=== PATIENT | female | born 1995 | race Two or more races ===

== ENCOUNTER 2021-01-18 21:57 | Emergency (ER) | payer SELFPAY ==
[~2021-01-18] VITALS: Ht 152.4 cm; Wt 61.0 kg
[2021-01-18] MEDS ORDERED: fentaNYL PF VIAL 100 MCG/2 ML VIAL IVP ONE (22:30)
[2021-01-18] MEDS ORDERED: ONDANSETRON PF 4 MG/2 ML VIAL. IVP ONE (22:30)
[2021-01-18] MEDS ORDERED: IV NORMAL SALINE 1000ML BAG 1,000 ML IV SCH (22:30)
--- NOTE | 2021-01-18 22:33 | PHYS DOC ---
General Adult EDM: Chief Complaint: ABDOMINAL PAIN HPI: HPI: Patient is a 25 year old female who presents with states she sat down tonight to urinate and suddenly had a severe sharp shooting pain that went from the right lower quadrant all the way to her back. She states that she also had hematuria. She states she did vomit once. She is rating her pain a 10 out of 10 sharp and shooting. Nothing makes it worse or better. She denies any type of history or surgical history. Denies fever, burning with urination, diarrhea, chest pain, shortness of air, headache, dizziness, numbness or tingling. (CLOTILDE BARRETT APRN) Review of Systems: Review of Systems: Constitutional: Denies fever or chills. [] Eyes: Denies change in visual acuity. [] HENT: Denies nasal congestion or sore throat. [] Respiratory: Denies cough or shortness of breath. [] Cardiovascular: Denies chest pain or edema. [] GI: + abdominal pain, +nausea, +vomiting, denies bloody stools or diarrhea. [] : Denies dysuria. + Hematuria Musculoskeletal: + Right flank back pain or denies joint pain. [] Integument: Denies rash. [] Neurologic: Denies headache, focal weakness or sensory changes. [] Endocrine: Denies polyuria or polydipsia. [] Lymphatic: Denies swollen glands. [] Psychiatric: Denies depression or anxiety. [] (CLOTILDE BARRETT APRN) Heart Score: C/O Chest Pain: No (CLOTILDE BARRETT APRN) Current Medications: Current Medications Medications (Trade) Dose Ordered Sig/Felecia Start Time Stop Time Status Last Admin Dose Admin Fentanyl Citrate (Fentanyl 2ml Vial) 50 mcg 1X ONCE 01/18/21 22:30 01/18/21 22:31 UNV Ondansetron HCl (Zofran) 4 mg 1X ONCE 01/18/21 22:30 01/18/21 22:31 UNV Sodium Chloride 1,000 ml @ 1,000 mls/hr Q1H 01/18/21 22:30 01/18/21 23:29 UNV (CLOTILDE BARRETT APRN) Physical Exam: PE: Constitutional: Well developed, well nourished, no acute distress, non-toxic appearance. [] HENT: Normocephalic, atraumatic, bilateral external ears normal, oropharynx moist, no oral exudates, nose normal. [] Eyes: PERRLA, EOMI, conjunctiva normal, no discharge. [] Neck: Normal range of motion, no tenderness, supple, no stridor. [] Cardiovascular:Heart rate regular rhythm, no murmur [] Lungs & Thorax: Bilateral breath sounds clear to auscultation [] Abdomen: Bowel sounds normal, soft, right lower tenderness, no masses, no pulsatile masses. [] Skin: Warm, dry, no erythema, no rash. [] Back: No tenderness, right CVA tenderness. [] Extremities: No tenderness, no cyanosis, no clubbing, ROM intact, no edema. [] Neurologic: Alert and oriented X 3, normal motor function, normal sensory function, no focal deficits noted. [] Psychologic: Affect normal, judgement normal, mood normal. [] (CLOTILDE BARRETT APRN) EKG: EKG: [] (CLOTILDE BARRETT APRN) Radiology/Procedures: Radiology/Procedures: [] Impression: [facility] [address] [place] [address] IMAGING REPORT Signed PATIENT: SHANNAN CAROLINA AACCOUNT: [id number] : 1995 LOCATION: ER AGE: 25 SEX: F EXAM STATUS: REG ER ORD. PHYSICIAN: CLOTILDE BARRETT APRN REASON: right lower quad with radiation to the back, vomiting PROCEDURE: CT ABDOMEN PELVIS WO CONTRAST Exam: CT abdomen/pelvis without intravenous contrast Indication: Right lower quadrant pain radiating to back, vomiting Comparison: None Technique: Helical CT imaging performed of the abdomen and pelvis without the use of intravenous contrast. Sagittal and coronal reformats were obtained. One or more of the following individualized dose reduction techniques were utilized for this examination: 1. Automated exposure control 2. Adjustment of the mA and/or kV according to patient size 3. Use of iterative reconstruction technique. Findings: Inherently limited evaluation without intravenous contrast. Lower chest: Lung bases are clear. The heart is normal in size. Liver: Unremarkable noncontrast appearance of the liver. Gallbladder/Biliary Tree: Normal. Pancreas: Normal. Spleen: Normal. Adrenal Glands: Normal. Kidneys/Ureters/Bladder: Kidneys are normal in size. No nephrolithiasis or hydronephrosis. Ureters are nondilated. Urinary bladder is incompletely distended but unremarkable. Reproductive Organs: Uterus is anteverted. No adnexal mass. Stomach, small bowel, and colon: The stomach, small bowel, and colon are unrema rkable. The appendix is normal. Vasculature: Abdominal aorta is normal in caliber. Lymph Nodes: No lymphadenopathy. Peritoneum and retroperitoneum: No free fluid or free air. Bones: No acute osseous abnormality. Impression: No acute abnormality in the abdomen and pelvis. Electronically signed by: Radha Ding MD (01/19/2021 12:47 AM) [facility] DICTATED and SIGNED BY: RADHA DING MD DATE: 01/19/21 [id number] (CLOTILDE BARRETT APRN) Course & Med Decision Making: Course & Med Decision Making Pertinent Labs and Imaging studies reviewed. (See chart for details) See HPI. Alert and oriented x4. Ambulatory with steady gait. Skin pink warm and dry. Vital signs within normal limits. Afebrile. Right CVA tenderness. Right lower quadrant tenderness. [] (CLOTILDE BARRETT CLEAN UP PERSON) Course & Med Decision Making Patients Care and treatment plan provided by ER Nurse Practitioner. I was a vailable for consult. Patient's chart reviewed. (DEIRDRE CHONG DO) Jose Disclaimer: Jose Disclaimer: This electronic medical record was generated, in whole or in part, using a voice recognition dictation system. (CLOTILDE BARRETT CLEAN UP PERSON) Departure Departure Impression: Primary Impression: UTI (urinary tract infection) Qualified Codes: N39.0 - Urinary tract infection, site not specified; R31.9 - Hematuria, unspecified Disposition: 01 HOME / SELF CARE / HOMELESS Condition: STABLE Patient Instructions: Urinary Tract Infection Additional Instructions: Drink plenty of fluids. Take medication as prescribed and with food. Follow-up with your primary care provider. If you begin vomiting and cannot keep down fluids or running a high fever or worsening symptoms after being on the antibiotic for 3 days return the emergency room. Scripts Ondansetron (ONDANSETRON ODT) 4 Mg Tab.rapdis 1 TAB PO PRN Q6-8HRS, #16 TAB Prov: CLOTILDE BARRETT APRN 01/19/21 Hydrocodone Bit/Acetaminophen (HYDROCODONE-APAP 5-325 ) 1 Tab Tablet 1 TAB PO PRN Q6HRS PRN for PAIN, #10 TAB 0 Refills Prov: CLOTILDE BARRETT APRN 01/19/21 Cephalexin (KEFLEX) 500 Mg Capsule 1 CAP PO TID, #21 CAP Prov: CLOTILDE BARRETT APRN 01/19/21 CLOTILDE BARRETT APRN Jan 18, 2021 22:33 DEIRDRE CHONG DO Jan 21, 2021 03:26
[2021-01-18 22:57] LABS: BASO # 0.1 x10^3/uL (0.0-0.2); BASO % 1 % (0-3); EOS # 0.2 x10^3/uL (0.0-0.7); EOS % 2 % (0-3); HEMATOCRIT 41.5 % (36.0-47.0); HEMOGLOBIN 14.1 g/dL (12.0-15.5); LYMPH # 3.5 x10^3/uL (1.0-4.8); LYMPH % 36 % (24-48); MEAN CORPUSCULAR HEMOGLOBIN 31 pg (25-35); MEAN CORPUSCULAR HGB CONC 34 g/dL (31-37); MEAN CORPUSCULAR VOLUME 91 fL (79-100); MONO # 0.9 x10^3/uL (0.0-1.1); MONO % 10 % (0-9); NEUT % 52 % (31-73); PLATELET COUNT 293 x10^3/uL (140-400); RED BLOOD COUNT 4.57 x10^6/uL (3.50-5.40); RED CELL DISTRIBUTION WIDTH 12.6 % (11.5-14.5); WHITE BLOOD COUNT 9.7 x10^3/uL (4.0-11.0)
[2021-01-18 23:12] LABS: CALCIUM 8.6 mg/dL (8.5-10.1); CREATININE 0.6 mg/dL (0.6-1.0); GFR 120.8; POTASSIUM 3.4 mmol/L (3.5-5.1)
[2021-01-18] MEDS ORDERED: IV NORMAL SALINE 1000ML BAG 1,000 ML IV ONE (23:15)
[2021-01-18 23:18] LABS: ALBUMIN 3.8 g/dL (3.4-5.0); ALBUMIN/GLOBULIN RATIO 1.1 (1.0-1.7); TOTAL BILIRUBIN 0.4 mg/dL (0.2-1.0); TOTAL PROTEIN 7.3 g/dL (6.4-8.2)
[2021-01-18 23:46] LABS: BILIRUBIN,URINE NEGATIVE (NEG); CLARITY,URINE CLOUDY; COLOR,URINE YELLOW; NITRITE,URINE NEGATIVE (NEG); PROTEIN,URINE NEGATIVE (NEG-TRACE)
[2021-01-18 23:54] LABS: BARBITURATES NEG (NEG); BENZODIAZEPINES NEG (NEG); CANNABINOIDS NEG (NEG); COCAINE NEG (NEG); METHADONE NEG (NEG); OPIATES NEG (NEG); PHENCYCLIDINE NEG (NEG)
[2021-01-18 23:59] LABS: BACTERIA,URINE FEW /HPF (0-FEW)
[2021-01-19] LABS: AMORPHOUS SEDIMENT,UR PRESENT /HPF
[2021-01-19] MEDS ORDERED: KETOROLAC 30 MG/ML VIAL. IVP ONE (00:15)
[2021-01-19] MEDS ORDERED: cefTRIAXone IV Push 1 GM VIAL. IVP ONE (00:15)
[2021-01-19 00:17] LABS: AMPHETAMINE/METHAMPHETAMINE NEG (NEG)
--- NOTE | 2021-01-19 00:49 | RAD ---
Exam: CT abdomen/pelvis without intravenous contrast Indication: Right lower quadrant pain radiating to back, vomiting Comparison: None Technique: Helical CT imaging performed of the abdomen and pelvis without the use of intravenous cont rast. Sagittal and coronal reformats were obtained. One or more of the following individualized dose reduction techniques were utilized for this examinat ion: 1. Automated exposure control 2. Adjustment of the mA and/or kV according to patient size 3. Use of iterative reconstruction technique. Findings: Inherently limited evaluation without intravenous contrast. Lower chest: Lung bases are clear. The heart is normal in size. Liver: Unremarkable noncontrast appearance of the liver. Gallbladder/Biliary Tree: Normal. Pancreas: Normal. Spleen: Normal. Adrenal Glands: Normal. Kidneys/Ureters/Bladder: Kidneys are normal in size. No nephrolithiasis or hydronephrosis. Ureters ar e nondilated. Urinary bladder is incompletely distended but unremarkable. Reproductive Organs: Uterus is anteverted. No adnexal mass. Stomach, small bowel, and colon: The stomach, small bowel, and colon are unremarkable. The appendix i s normal. Vasculature: Abdominal aorta is normal in caliber. Lymph Nodes: No lymphadenopathy. Peritoneum and retroperitoneum: No free fluid or free air. Bones: No acute osseous abnormality. Impression: No acute abnormality in the abdomen and pelvis. Electronically signed by: Radha Ding MD (01/19/2021 12:47 AM) [facility]
[2021-01-19 00:53] VITALS: BP 102/56
[2021-01-19] MEDS ORDERED: HYDR-2761 PO (01:02)
[2021-01-19] MEDS ORDERED: CEPH500C PO (01:02)
[2021-01-19] MEDS ORDERED: ONDA4TAB12 PO (01:02)
== END 2021-01-19 01:22 | disposition home or self-care (01) ==
LOC: ER 21:57
DX: N39.0 Urinary tract infection, site not specified (principal); R31.9 Hematuria, unspecified
CPT/HCPCS: 36415; 74176; 80053; 80307; 81001; 81025; 83690; 84702; 85025; 87086; 96361; 96374; 96375; 99285; J0696; J1885; J2405; J3010; J7030

== ENCOUNTER 2021-04-06 09:49 | Emergency (ER) | payer SELFPAY ==
[~2021-04-06] VITALS: Ht 154.9 cm; Wt 59.3 kg
[~2021-04-06 09:49] MED LIST: CEPH500C PO; HYDR-2761 PO; ONDA4TAB12 PO
[2021-04-06 10:33] LABS: BILIRUBIN,URINE NEGATIVE (NEG); CLARITY,URINE CLOUDY; COLOR,URINE YELLOW; NITRITE,URINE NEGATIVE (NEG); PROTEIN,URINE NEGATIVE (NEG-TRACE)
[2021-04-06] MEDS ORDERED: IV NORMAL SALINE 1000ML BAG 1,000 ML IV ONE (10:45)
--- NOTE | 2021-04-06 10:55 | PHYS DOC ---
Past Medical History Past Surgical History: No Surgical History Smoking Status: Never Smoker Alcohol Use: None General Adult EDM: Chief Complaint: ABDOMINAL PAIN HPI: HPI: HPI is limited to powder blender service interpretation. Patient is a 25-year-old female 2 para 1 presents to the emergency department complaining of left lower pelvic pain for the past 3 days, describes pain as a sharp stabbing pain that she rates at a 10 out of 10 pain scale. Patient reports he watery vaginal discharge that started yesterday. Patient reports she has not taken any [id number] or prescription pain medications for her pain, has not tried nonpharmacological pain relief methods, denies nausea, reports her last menstrual cycle of March 28/2022 with normal duration of flow. Patient reports no problems with previous , has a 7-year-old son. Denies rashes or lesions to her vagina. Denies itching, denies urinary pressure, hematuria, urinary pain, or other dysuria. Patient denies abdominal pains, vomiting, diarrhea or constipation. Patient denies seeing blood in her stool. Patient denies other physical complaints or physical concerns. Patient denies history of cigarette smoking, does not drink alcohol, denies illicit drug use, denies a history of IV drug abuse Review of Systems: Review of Systems: 14 body systems of review of systems have been reviewed. See HPI for pertinent positives and negative responses, otherwise all other systems are negative, nonpertinent or noncontributory. Constitutional: Negative except as outlined in HPI above. Skin: Negative except as outlined in HPI above. Eyes: Negative except as outlined in HPI above. HENT: Negative except as outlined in HPI above. Respiratory: Negative except as outlined in HPI above. Cardiovascular: Negative except as outlined in HPI above. GI: Negative except as outlined in HPI above. : Negative except as outlined in HPI above. Musculoskeletal: Negative except as outlined in HPI above. Integument: Negative except as outlined in HPI above. Neurologic: Negative except as outlined in HPI above. Endocrine: Negative except as outlined in HPI above. Lymphatic: Negative except as outlined in HPI above. Psychiatric: Negative except as outlined in HPI above. Heart Score: C/O Chest Pain: No Risk Factors: Risk Factors: DM, Current or recent (<one month) smoker, HTN, HLP, family history of CAD, obesity. Risk Scores: Score 0 - 3: 2.5% MACE over next 6 weeks - Discharge Home Score 4 - 6: 20.3% MACE over next 6 weeks - Admit for Clinical Observation Score 7 - 10: 72.7% MACE over next 6 weeks - Early Invasive Strategies Current Medications: Current Medications Medications (Trade) Dose Ordered Sig/Felecia Start Time Stop Time Status Last Admin Dose Admin Sodium Chloride 1,000 ml @ 1,000 mls/hr 1X ONCE 04/06/21 10:45 04/06/21 11:44 Allergies: Allergies: Allergies Coded Allergies Type Severity Reaction Last Updated Verified No Known Drug Allergies 01/18/21 No Physical Exam: PE: Constitutional: Well developed, well nourished, no acute distress, non-toxic appearance. 25-year-old female in no apparent distress. HENT: Normocephalic, atraumatic. Eyes: Conjunctiva normal, no discharge. Neck: Normal range of motion. Cardiovascular: Distal cap refill less than 2 seconds, no cyanosis appreciated. Lungs & Thorax: Patient is in no respiratory distress, no adventitious lung sounds appreciated. Abdomen: Bowel sounds normal, soft, no masses, no pulsatile masses. No bruising or skin discoloration of the abdomen. Pain with palpation left lower pelvic area. Skin: Warm, dry, no erythema, no rash. Back: No tenderness, no CVA tenderness. Extremities: No tenderness, no cyanosis, no clubbing, ROM intact, no edema. Neurologic: Alert and oriented X 3, normal motor function, normal sensory function, no focal deficits noted. Psychologic: Affect normal, judgement normal, mood normal. : Pelvic examination performed with female ED nurse at bedside for automotive buyer, no rashes or lesions or other abnormalities appreciated of the external vaginal area or structures, speculum exam revealed pink nonerythematous vaginal vault, the cervical os is closed, no bleeding appreciated, there is a yellowish-white discharge, wet prep culture obtained and sent to lab. Patient tolerated well. Current Patient Data: Labs: Laboratory Tests Test 04/06/21 10:15 04/06/21 10:23 04/06/21 10:45 Urine Collection Type Unknown Urine Color Yellow Urine Clarity Cloudy Urine pH 6.0 Urine Specific [place] >=1.030 Urine Protein Negative mg/dL Urine Glucose (UA) Negative mg/dL Urine Ketones (Stick) Negative mg/dL Urine Blood Negative Urine Nitrite Negative Urine Bilirubin Negative Urine Urobilinogen Dipstick 1.0 mg/dL Urine Leukocyte Esterase Moderate Urine RBC 0 /HPF Urine WBC 11-20 /HPF Urine Squamous Epithelial Cells Many /LPF Urine Bacteria 0 /HPF Urine Mucus Mod /LPF Bedside Urine HCG, Qualitative Hcg positive White Blood Count 8.5 x10^3/uL Red Blood Count 4.38 x10^6/uL Hemoglobin 13.1 g/dL Hematocrit 39.6 % Mean Corpuscular Volume 91 fL Mean Corpuscular Hemoglobin 30 pg Mean Corpuscular Hemoglobin Concent 33 g/dL Red Cell Distribution Width 13.3 % Platelet Count 263 x10^3/uL Neutrophils (%) (Auto) 56 % Lymphocytes (%) (Auto) 32 % Monocytes (%) (Auto) 10 % Eosinophils (%) (Auto) 2 % Basophils (%) (Auto) 1 % Neutrophils # (Auto) 4.7 x10^3/uL Lymphocytes # (Auto) 2.7 x10^3/uL Monocytes # (Auto) 0.8 x10^3/uL Eosinophils # (Auto) 0.2 x10^3/uL Basophils # (Auto) 0.1 x10^3/uL Maternal Serum HCG Beta Subunit 48369 mIU/mL Sodium Level 138 mmol/L Potassium Level 4.2 mmol/L Chloride Level 105 mmol/L Carbon Dioxide Level 24 mmol/L Anion Gap 9 Blood Urea Nitrogen 13 mg/dL Creatinine 0.5 mg/dL Estimated GFR (Cockcroft-Gault) 149.1 BUN/Creatinine Ratio 26 Glucose Level 84 mg/dL Calcium Level 8.0 mg/dL Total Bilirubin 0.4 mg/dL Aspartate Amino Transf (AST/SGOT) 6 U/L Alanine Aminotransferase (ALT/SGPT) 16 U/L Alkaline Phosphatase 63 U/L Total Protein 6.8 g/dL Albumin 3.5 g/dL Albumin/Globulin Ratio 1.1 Current Medications Medications (Trade) Dose Ordered Sig/Felecia Route PRN Reason Start Time Stop Time Status Last Admin Dose Admin Sodium Chloride 1,000 ml @ 1,000 mls/hr 1X ONCE IV 04/06/21 10:45 04/06/21 11:44 DC 04/06/21 11:31 Acetaminophen (Tylenol) 1,000 mg 1X ONCE PO 04/06/21 11:15 04/06/21 11:16 DC 04/06/21 11:30 Laboratory Tests Test 04/06/21 10:23 POC Urine HCG, Qualitative Hcg positive (Negative) Vital Signs: Vital Signs Date Time Temp Pulse Resp B/P (MAP) Pulse Ox O2 Delivery O2 Flow Rate FiO2 04/06/21 09:56 98.4 72 14 108/66 (80) 99 Room Air 98.4 EKG: EKG: [] Radiology/Procedures: Radiology/Procedures: REASON: Left lower pelvic pain, PROCEDURE: OB TRANSVAG EXAM: Obstetrics sonogram. HISTORY: Pelvic pain. TECHNIQUE: Transvaginal sonographic imaging of the pelvis was performed. COMPARISON: None. FINDINGS: The uterus measures 10 x 6 x 5 cm. There is a single intrauterine gestational sac with yolk sac. The mean sac diameter is 1.4 cm, corresponding with a gestational age of 6 weeks and 6 days. No pole is seen. The gestational sac is normal in configuration and location. The ovaries are normal in size and demonstrate normal blood flow. There is a 2.4 cm, complicated right ovarian cyst, possibly hemorrhagic in etiology. There is no pelvic free fluid. T here is a suspected small subchronic hematoma measuring approximately 1.8 cm in maximum dimension. IMPRESSION: 1. Single intrauterine gestational sac with yolk sac. The mean gestational sac diameter corresponds with a gestational age of 6 weeks and 6 days. No pole is seen. Follow-up with a sonogram in approximately 1 week is recommended to assess viability. 2. Suspected small subchronic hematoma. 3. 2.4 cm complicated right ovarian cyst, possibly hemorrhagic in etiology. Attention at the time of follow-up is recommended. Electronically signed by: Lisbet Aguilera MD (04/06/2021 11:16 AM) [id number] Course & Med Decision Making: Course & Med Decision Making Pertinent Labs and Imaging studies reviewed. (See chart for details) 25-year-old female, 2 para 1, vital signs reviewed, presents emergency department complaining of sudden onset left lower pelvic pain. Patient's LMP approximately 10 days ago, patient is per bedside urine test in the ED today, will order OB ultrasound less than 14 weeks, CBC, CMP, urinalysis assay, will send urine for GC chlamydia, will for pelvic examination for wet prep cultures, ABO type, hCG quant, feeling a lot, normal saline 1000 cc. Pelvic sonogram reveals approximately 6-week 6-day single intrauterine gestational sac with yolk sac, there is no pole appreciated, also noted a 2.4 cm right ovarian cyst possibly hemorrhagic in nature, house radiologist recommends follow-up ultrasound in 1 week. There was no blood noted during pelvic examination, suspicious for infectious process, wet prep cultures pending at this time. Wet prep cultures nonconcerning for trichomonas, yeast, clue cells, however did show many white blood cells, pelvic examination suspicious for STI, will prophylactically treat with azithromycin p.o. 1 g, 500 mg IM Rocephin. Patient's hCG quant 23,938, discussed pelvic sonogram findings with patient, strict follow-up with [employer]OUT WORKER in 1 week for repeat ultrasound to exam and right ovarian cyst. Discussed home care, pelvic rest, bedrest related to subchorionic hematoma. The patient's urine is not infected. Patient's blood type is O+. CBC and CMP unremarkable patient gave verbal understanding of and is amenable to ED discharge planning. Discussed with the patient all findings and diagnostic testing as well as the need to follow-up with their primary care provider for further evaluation and treatment or return to the ED if any new or worsening symptoms. Strict return precautions were also discussed at length, the patient voiced understanding and agreement with the discharge planning. The patient was nontoxic in appearance, in no apparent distress, and hemodynamically stable at the time of disposition. Dragon Disclaimer: Dragon Disclaimer: This electronic medical record was generated, in whole or in part, using a voice recognition dictation system. Departure Departure Impression: Primary Impression: Pelvic pain during in first trimester, antepartum Additional Impression: Ovarian cyst Qualified Codes: N83.201 - Unspecified ovarian cyst, right side Disposition: HOME / SELF CARE / HOMELESS Condition: GOOD Referrals: UNKNOWN PCP NAME (PCP) NEHA AQUINO MD Patient Instructions: Abdominal Pain During , Ovarian Cyst Additional Instructions: Lo vieron hoy en el departamento de emergencias por dolor plvico inferior lakia ousmane los ltimos 3 farah. Ests embarazada. Hoy se realiz luigi ecografa que mostr un embarazo temprano de 6 semanas y 6 farah; sin embargo, era demasiado pronto para isabelle ningn movimiento . Tambin se descubri un quiste en coppola ovario derecho. Es muy importante que se repita luigi ecografa de seguimiento en 1 semana para reevaluar el embarazo y el quiste en el ovario derecho. Recibi tratamiento hoy por gonorrea y clamidia, los resultados de coppola prueba no estuvieron disponibles hoy, sin embargo, usted y yo hemos tomado luigi decisin conjunta para tratar coppola flujo vaginal. Tigre un seguimiento con coppola obstetra/gineclogo en 1 semana para que se tigre esto, si no puede asegurar luigi gabriel. Le he dado informacin para el especialista en obstetricia y ginecologa, el Dr. Aquino, llame hoy o maana para luigi gabriel de 1 semana para ecografa de seguimiento. Abstngase de tener relaciones sexuales, practique el reposo en cama hasta que lo alberto coppola especialista en obstetricia/ginecologa, regrese al departamento de emergencias si tiene sangrado vaginal. Puede usar Tylenol para el dolor y la incomodidad. Infrmele a coppola obstetra/gineclogo la siguiente informacin: Coppola tipo de bayron es O+, coppola nivel de beta hCG actual es 23,938. Adjunto luigi copia de los resultados de coppola ecografa para que la lleve a coppola gabriel con el ginecoobstetra. Dayan por visitar nuestro Departamento de Emergencias. Fue un placer atenderlo hoy en el departamento de emergencias y le agradecemos que nos haya confiado coppola atencin. Si surge algn problema adicional, no dude en volver a visitarnos. Tigre un seguimiento con coppola proveedor de atencin primaria para que puedan planificar atencin adicional si es necesario y conocer el problema que tuvo. Si los sntomas empeoran, regrese al Departamento de Emergencias. Cualquier sntoma preocupante que comience, genoveva dolor en el pecho, falta de aire, debilidad o entumecimiento en un lado del cuerpo, fiebre ad o cualquier otro sntoma preocupante, regresa a la cassi de emergencias. You were seen today in the emergency department for left lower pelvic pain for the past 3 days. You are . A sonogram was performed today which showed an early 6-week 6-day however it was too early to see any movement. A cyst on your right ovary was also discovered. It is very important that you have a follow-up sonogram repeated in 1 week to reevaluate the and cyst on your right ovary. You were treated today for gonorrhea and chlamydia, your test results were not available today however you and I have made a joint decision to treat related to your vaginal discharge. Please follow-up with your [facility] WORK[facility] in 1 week to have this done, if you are unable to s ecure an appointment I have given information for [employer] specialist Dr. Aquino, please call today or tomorrow for an appointment for 1 week for follow-up ultrasound. Please refrain from any sexual intercourse, please practice bedrest until seen by your [facility]OUT WORK[facility] specialist, please return to the emergency department for any vaginal bleeding. You may use Tylenol for pain and discomfort. Please let your [employer]OPE[employer]OUT WORKER specialist know the following information: Your blood type is O+, your beta hCG quant level today is 23,938. I have attached a copy of your sonogram results to take with you to your [facility]OUT WORK[facility] appointment. Thank you for visiting our Emergency Department. It was a pleasure taking care of you today in the emergency department and we appreciate you trusting us with your care. If any additional problems come up don't hesitate to return to visit us. Please follow up with your primary care provider so they can plan additional care if needed and know about the problem that you had. If symptoms worsen come back to the Emergency Department. Any concerning symptoms that start such as chest pain, shortness of air, weakness or numbness on one side of the body, running high fevers or any other concerning symptoms return to the ER. NEHA ROBERTSON APRN Apr 06, 2021 10:55
[2021-04-06 11:00] LABS: BACTERIA,URINE 0 /HPF (0-FEW); RBC,URINE 0 /HPF (0-2)
[2021-04-06 11:06] LABS: BASO # 0.1 x10^3/uL (0.0-0.2); BASO % 1 % (0-3); EOS # 0.2 x10^3/uL (0.0-0.7); EOS % 2 % (0-3); HEMATOCRIT 39.6 % (36.0-47.0); HEMOGLOBIN 13.1 g/dL (12.0-15.5); LYMPH # 2.7 x10^3/uL (1.0-4.8); LYMPH % 32 % (24-48); MEAN CORPUSCULAR HEMOGLOBIN 30 pg (25-35); MEAN CORPUSCULAR HGB CONC 33 g/dL (31-37); MEAN CORPUSCULAR VOLUME 91 fL (79-100); MONO # 0.8 x10^3/uL (0.0-1.1); MONO % 10 % (0-9); NEUT # 4.7 x10^3/uL (1.8-7.7); NEUT % 56 % (31-73); PLATELET COUNT 263 x10^3/uL (140-400); RED BLOOD COUNT 4.38 x10^6/uL (3.50-5.40); RED CELL DISTRIBUTION WIDTH 13.3 % (11.5-14.5); WHITE BLOOD COUNT 8.5 x10^3/uL (4.0-11.0)
[2021-04-06] MEDS ORDERED: ACETAMINOPHEN 500 MG TABLET PO ONE (11:15)
[2021-04-06 11:18] LABS: CREATININE 0.5 mg/dL (0.6-1.0); GFR 149.1; POTASSIUM 4.2 mmol/L (3.5-5.1)
--- NOTE | 2021-04-06 11:18 | RAD ---
EXAM: Obstetrics sonogram. HISTORY: Pelvic pain. TECHNIQUE: Transvaginal sonographic imaging of the pelvis was performed. COMPARISON: None. FINDINGS: The uterus measures 10 x 6 x 5 cm. There is a single intrauterine gestational sac with yolk sac. The mean sac diameter is 1.4 cm, corresponding with a gestational age of 6 weeks and 6 days. No pole is seen. The gestational sac is normal in configuration and location. The ovaries are nor mal in size and demonstrate normal blood flow. There is a 2.4 cm, complicated right ovarian cyst, pos sibly hemorrhagic in etiology. There is no pelvic free fluid. There is a suspected small subchronic h ematoma measuring approximately 1.8 cm in maximum dimension. IMPRESSION: 1. Single intrauterine gestational sac with yolk sac. The mean gestational sac diameter corresponds w ith a gestational age of 6 weeks and 6 days. No pole is seen. Follow-up with a sonogram in appr oximately 1 week is recommended to assess viability. 2. Suspected small subchronic hematoma. 3. 2.4 cm complicated right ovarian cyst, possibly hemorrhagic in etiology. Attention at the time of follow-up is recommended. Electronically signed by: Lisbet Aguilera MD (04/06/2021 11:16 AM) [id number]
[2021-04-06 11:24] LABS: ALBUMIN 3.5 g/dL (3.4-5.0); ALBUMIN/GLOBULIN RATIO 1.1 (1.0-1.7); TOTAL BILIRUBIN 0.4 mg/dL (0.2-1.0); TOTAL PROTEIN 6.8 g/dL (6.4-8.2)
[2021-04-06] MEDS ORDERED: cefTRIAXone IM 500 MG VIAL. IM ONE (12:15)
[2021-04-06] MEDS ORDERED: AZITHROMYCIN 250 MG TABLET. PO ONE (12:15)
[2021-04-06 12:17] VITALS: BP 115/60
== END 2021-04-06 13:05 | disposition home or self-care (01) ==
LOC: ER 09:49
DX: O34.81 Maternal care for other abnormalities of pelvic organs, first trimester (principal); N83.201 Unspecified ovarian cyst, right side; Z3A.01 Less than 8 weeks gestation of pregnancy
CPT/HCPCS: 36415; 76817; 80053; 81001; 81025; 84702; 85025; 86900; 86901; 87086; 87491; 87591; 96360; 96372; 99284; J0696; J7030; Q0111

== ENCOUNTER 2021-04-12 15:07 | Emergency (ER) | payer SELFPAY ==
[~2021-04-12] VITALS: Ht 160 cm; Wt 59.6 kg
[2021-04-12 16:00] LABS: BILIRUBIN,URINE NEGATIVE (NEG); CLARITY,URINE CLEAR; COLOR,URINE YELLOW; NITRITE,URINE NEGATIVE (NEG); PH,URINE 8.5 (<5.0-8.0); PROTEIN,URINE NEGATIVE (NEG-TRACE); UROBILINOGEN,URINE 0.2 mg/dL (0.2 mg/dL)
--- NOTE | 2021-04-12 16:09 | PHYS DOC ---
Past Medical History Past Surgical History: No Surgical History Smoking Status: Never Smoker Alcohol Use: None General Adult EDM: Chief Complaint: VAGINAL BLEEDING HPI: HPI: Patient is a 25 year old female 2 para 1 currently 6 weeks presenting to the ED today complaining of vaginal bleeding in , symptoms began yesterday. Patient states she has small amount of bleeding right now. She is also complaining of low back pain and bilateral lower abdominal pain, rates her pain a 10 out of 10. Describes the pain as sharp and intermittent. Denies any nausea, vomiting, fever. Patient states she was seen in the ED 6 days ago for abdominal pain and was diagnosed with ovarian cyst, and a positive IUP. She states she did not have any vaginal bleeding on that day. Ramp Boss line was used for [place] Review of Systems: Review of Systems: Constitutional: Denies fever or chills. [] Eyes: Denies change in visual acuity. [] HENT: Denies nasal congestion or sore throat. [] Respiratory: Denies cough or shortness of breath. [] Cardiovascular: Denies chest pain or edema. [] GI: Reports abdominal pain in , vaginal bleeding in , nausea, vomiting, bloody stools or diarrhea. [] : Denies dysuria. [] Musculoskeletal: Reports back pain in Integument: Denies rash. [] Neurologic: Denies headache, focal weakness or sensory changes. [] [] Psychiatric: Denies depression or anxiety. [] Heart Score: C/O Chest Pain: N/A Risk Factors: Risk Factors: DM, Current or recent (<one month) smoker, HTN, HLP, family history of CAD, obesity. Risk Scores: Score 0 - 3: 2.5% MACE over next 6 weeks - Discharge Home Score 4 - 6: 20.3% MACE over next 6 weeks - Admit for Clinical Observation Score 7 - 10: 72.7% MACE over next 6 weeks - Early Invasive Strategies Allergies: Allergies: Allergies Coded Allergies Type Severity Reaction Last Updated Verified No Known Drug Allergies 01/18/21 No Physical Exam: PE: Constitutional: Well developed, well nourished, no acute distress, non-toxic appearance. [] HENT: Normocephalic, atraumatic, bilateral external ears normal, oropharynx moist, no oral exudates, nose normal. [] Eyes: PERRLA, EOMI, conjunctiva normal, no discharge. [] Neck: Normal range of motion, no tenderness, supple, no stridor. [] Cardiovascular:Heart rate regular rhythm, no murmur [] Lungs & Thorax: Bilateral breath sounds clear to auscultation [] Abdomen: Bowel sounds normal, soft, no tenderness, no masses, no pulsatile masses. [] Pelvic exam External vaginal area is normal, cervix is visualized, closed, positive CMT, trace amount of brownish discharge in the vaginal vault, bilateral adnexal tenderness. Skin: Warm, dry, no erythema, no rash. [] Back: No tenderness, no CVA tenderness. [] Extremities: No tenderness, no cyanosis, no clubbing, ROM intact, no edema. [] Neurologic: Alert and oriented X 3, normal motor function, normal sensory function, no focal deficits noted. [] Psychologic: Affect normal, judgement normal, mood normal. [] Current Patient Data: Labs: Laboratory Tests Test 04/12/21 15:16 POC Urine HCG, Qualitative Hcg positive (Negative) Vital Signs: Vital Signs Date Time Temp Pulse Resp B/P (MAP) Pulse Ox O2 Delivery O2 Flow Rate FiO2 04/12/21 15:25 98.0 83 16 133/71 (91) 99 Room Air 98.0 EKG: EKG: [] Radiology/Procedures: Radiology/Procedures: []PROCEDURE: OB < 14 WKS EXAM: OBSTETRIC ULTRASOUND, <14 WEEKS. HISTORY: Vaginal bleeding in . COMPARISON: 04/06/2021. FINDINGS: Sonographic evaluation of the pelvis was performed transabdominally. The uterus is anteverted and measures 11.0 x 5.4 x 5.1 cm. There is a single intrauterine gestation measuring 6 weeks 2 days. The pole measures smaller than the gestational sac which corresponds with 7 weeks 4 days based on mean sac diameter 2.54 cm. heart rate is 116 bpm. A yolk sac is visualized. The gestational sac is regular. A small subchorionic collection is again noted on the left measuring 15 x 5 mm. The right ovary measures 2.4 x 2.2 x 2.1 cm. The left ovary measures 2.7 x 2.5 x 2.5 cm. There is normal Doppler flow bilaterally. There is no adnexal mass. There is no significant free fluid. IMPRESSION: 1. Single intrauterine gestation measuring 6 weeks 2 days based on crown-rump length. This is smaller than age based on mean sac diameter at 7 weeks 4 days. Ongoing follow-up is recommended. heart rate 116 bpm. 2. Small subchorionic collection again noted. Electronically signed by: Amie Fabian MD (04/12/2021 6:38 PM) [id number] DICTATED and SIGNED BY: MICHAEL FABIAN MD DATE: 04/12/21 [id number] 0 Course & Med Decision Making: Course & Med Decision Making Pertinent Labs and Imaging studies reviewed. (See chart for details) This is a 25-year-old female patient presenting to the ED today complaining of vaginal bleeding in as well as lower abdominal pain and back pain, states symptoms began yesterday. She is a 2 para 1. She was in the ED 6 days ago and was noted to have single intrauterine gestational sac with yolk sac,gestational age of 6 weeks and 6 days. No pole is seen. Follow-up with a sonogram in approximately 1 week is recommended to assess viability Confirmation for IUP is still necessary.No pole is seen. Follow-up with a sonogram in approximately 1 week is recommended to assess viability.2.4 cm complicated right ovarian cyst, possibly hemorrhagic in etiology. Confirmation of IUP is still required on this patient. phone technician was refusing to do ultrasound of this patient. I had to threaten to report her to Dr. Trevizo. Blood group O+ CBC CMP UA with no acute findings Beta-hCG 66,632, higher from 04/06/2021 today [id number] OB ultrasound noted for single intrauterine gestation measuring 6 weeks 2 days based on crown-rump length. This is smaller than age based on mean sac diameter at 7 weeks 4 days. Ongoing follow-up is recommended. heart rate 116 bpm. Small subchorionic collection again noted. Patient was discharged to home. Emphasized to this patient the importance of bedrest as well as following up with an SHIRT FOLDING MACHINE OPERATOR as soon as possible. She stated she was planning to see a doctor at the local clinic. I also gave her Dr. Aquino's phone number. Provided her return precautions including the need to return to the ED at any time she has worsening pain, bleeding more than 1 feminine pad an hour, uncontrolled pain. Dragon Disclaimer: Dragon Disclaimer: This electronic medical record was generated, in whole or in part, using a voice recognition dictation system. Departure Departure Impression: Primary Impression: Abdominal pain in Qualified Codes: O26.891 - Other specified related conditions, first trimester; R10.9 - Unspecified abdominal pain Additional Impressions: Subchorionic bleed Qualified Codes: O41.8X10 - Other specified disorders of amniotic fluid and membranes, first trimester, not applicable or unspecified; O46.8X1 - Other antepartum hemorrhage, first trimester Threatened miscarriage Disposition: HOME / SELF CARE / HOMELESS Condition: STABLE Referrals: NO PCP (PCP) NEHA AQUINO MD Follow-up as soon as possible Patient Instructions: Abdominal Pain During , [id number], Threatened Miscarriage, [id number] Additional Instructions: You were evaluated in the emergency room for vaginal bleeding, abdominal pain in . We highly recommend you maintain bed rest until seen by the SHIRT FOLDING MACHINE OPERATOR, this includes no sexual intercourse until seen by the SHIRT FOLDING MACHINE OPERATOR. Please come back to the ED at any point to have uncontrolled pain, start bleeding more than 1 feminine pad an hour. PACU on SHIRT FOLDING MACHINE OPERATOR the provided SHIRT FOLDING MACHINE OPERATOR as soon as possible OZZIE BURTON APRN Apr 12, 2021 16:09
[2021-04-12 16:10] LABS: BACTERIA,URINE 0 /HPF (0-FEW); RBC,URINE 0 /HPF (0-2); WBC,URINE OCC /HPF (0-4)
[2021-04-12 16:40] LABS: BASO # 0.1 x10^3/uL (0.0-0.2); BASO % 1 % (0-3); EOS # 0.1 x10^3/uL (0.0-0.7); EOS % 1 % (0-3); HEMATOCRIT 37.5 % (36.0-47.0); HEMOGLOBIN 12.9 g/dL (12.0-15.5); LYMPH # 2.6 x10^3/uL (1.0-4.8); LYMPH % 27 % (24-48); MEAN CORPUSCULAR HEMOGLOBIN 31 pg (25-35); MEAN CORPUSCULAR HGB CONC 35 g/dL (31-37); MEAN CORPUSCULAR VOLUME 90 fL (79-100); MONO # 0.9 x10^3/uL (0.0-1.1); MONO % 9 % (0-9); NEUT # 5.9 x10^3/uL (1.8-7.7); NEUT % 62 % (31-73); PLATELET COUNT 270 x10^3/uL (140-400); RED BLOOD COUNT 4.17 x10^6/uL (3.50-5.40); RED CELL DISTRIBUTION WIDTH 13.1 % (11.5-14.5); WHITE BLOOD COUNT 9.6 x10^3/uL (4.0-11.0)
[2021-04-12 16:53] LABS: CREATININE 0.6 mg/dL (0.6-1.0); GFR 120.8; POTASSIUM 3.7 mmol/L (3.5-5.1)
[2021-04-12 16:59] LABS: ALBUMIN 3.4 g/dL (3.4-5.0); ALBUMIN/GLOBULIN RATIO 0.9 (1.0-1.7); TOTAL BILIRUBIN 0.3 mg/dL (0.2-1.0)
--- NOTE | 2021-04-12 18:40 | RAD ---
EXAM: OBSTETRIC ULTRASOUND, <14 WEEKS. HISTORY: Vaginal bleeding in . COMPARISON: 04/06/2021. FINDINGS: Sonographic evaluation of the pelvis was performed transabdominally. The uterus is anteverted and measures 11.0 x 5.4 x 5.1 cm. There is a single intrauterine gestation m easuring 6 weeks 2 days. The pole measures smaller than the gestational sac which corresponds w ith 7 weeks 4 days based on mean sac diameter 2.54 cm. heart rate is 116 bpm. A yolk sac is vis ualized. The gestational sac is regular. A small subchorionic collection is again noted on the left m easuring 15 x 5 mm. The right ovary measures 2.4 x 2.2 x 2.1 cm. The left ovary measures 2.7 x 2.5 x 2.5 cm. There is nor mal Doppler flow bilaterally. There is no adnexal mass. There is no significant free fluid. IMPRESSION: 1. Single intrauterine gestation measuring 6 weeks 2 days based on crown-rump length. This is smaller than age based on mean sac diameter at 7 weeks 4 days. Ongoing follow-up is recommended. heart rate 116 bpm. 2. Small subchorionic collection again noted. Electronically signed by: Amie Fabian MD (04/12/2021 6:38 PM) [id number]
[2021-04-12 19:25] VITALS: BP 104/58
[2021-04-14 19:12] LABS: GC PROBE Negative (Negative)
== END 2021-04-12 20:10 | disposition home or self-care (01) ==
LOC: ER 15:07
DX: O41.8X10 Other specified disorders of amniotic fluid and membranes, first trimester, not applicable or unspecified (principal); R10.31 Right lower quadrant pain; R10.32 Left lower quadrant pain; M54.50 Low back pain, unspecified; Z3A.01 Less than 8 weeks gestation of pregnancy
CPT/HCPCS: 76801; 80053; 81001; 81025; 84702; 85025; 87491; 87591; 99285; Q0111